=== PATIENT | female | born 1995 | race Caucasian/White ===

== ENCOUNTER 2017-02-24 14:57 | Outpatient (CLI) | payer MEDICAID ==
[~2017-02-24] VITALS: Ht 157.5 cm; Wt 80.5 kg
[~2017-02-24 14:57] MED LIST: DOCU-131 PO; IBUP-1222 PO; OXYC-302 PO; PREN1TAB27 PO
[2017-02-24 15:12] VITALS: BP 107/62
== END 2017-02-24 16:43 | disposition home or self-care (01) ==
LOC: LDOP 14:57
PROVIDERS: ATTEND Student in an Organized Health Care Education/Training Program
DX: O36.8130 Decreased fetal movements, third trimester, not applicable or unspecified (principal); Z3A.37 37 weeks gestation of pregnancy
CPT/HCPCS: 59025; 76815; 99201; G0463

== ENCOUNTER 2017-03-06 06:09 | Inpatient (IN) | payer MEDICAID ==
[~2017-03-06] VITALS: Ht 157.5 cm; Wt 80.9 kg
[2017-03-06] MEDS ORDERED: LACTATED RINGERS 1,000 ML IV SCH ×2 (06:16→06:30)
[2017-03-06] MEDS ORDERED: OXYTOCIN 30U/ 0.9% NaCL 500ML 500 ML IV SCH (06:16)
[2017-03-06 06:29] VITALS: BP 120/64
[2017-03-06] MEDS ORDERED: METOCLOPRAMIDE 5 MG/ML, 2ML IV ONE (06:30)
[2017-03-06] MEDS ORDERED: SODIUM CITRATE/CITRIC ACID 30 ML UDC PO ONE (06:30)
[2017-03-06] MEDS ORDERED: LACTATED RINGERS 1,000 ML IVBOLUS ONE (06:30)
[2017-03-06 06:44] LABS: HEMATOCRIT 36.6 % (34.6-47.8); WHITE BLOOD COUNT 8.8 x10^3/uL (3.4-10)
[2017-03-06] MEDS ORDERED: METOCLOPRAMIDE 5 MG/ML, 2ML ONE ×2 (06:53→10:21)
[2017-03-06] MEDS ORDERED: NEWBORN KIT ONE (06:53)
[2017-03-06] MEDS ORDERED: SODIUM CITRATE/CITRIC ACID 30 ML UDC ONE ×2 (06:53→10:21)
[2017-03-06] MEDS ORDERED: OXYTOCIN 30U/ 0.9% NaCL 500ML 500 ML ONE (06:53)
[2017-03-06] MEDS ORDERED: ONDANSETRON 2MG/ML, 2ML IVPush PRN (08:00)
[2017-03-06] MEDS ORDERED: MEPERIDINE/PF 25MG/0.5ML IVPush PRN (08:00)
[2017-03-06] MEDS ORDERED: EPHEDRINE 50 MG/ML, 1ML IVPush PRN (08:00)
[2017-03-06] MEDS ORDERED: OXYcodone 5 MG/5 ML ORAL.SOL UDC PO PRN (08:00)
[2017-03-06] MEDS ORDERED: morphine SULFATE 10 MG/ML, 1ML IV PRN (08:00)
[2017-03-06] MEDS ORDERED: CEFAZOLIN 1,000 MG ONE (10:21)
[2017-03-06] MEDS ORDERED: KETOROLAC 30 MG/1 ML ONE (10:21)
[2017-03-06] MEDS ORDERED: OXYTOCIN 10 UNITS/ML, 1ML ONE ×2 (10:21)
[2017-03-06] MEDS ORDERED: FENTANYL PF 100 MCG/2ML ONE ×3 (11:05→13:20)
[2017-03-06] MEDS: OXYTOCIN 30U/ 0.9% NaCL 500ML 500 ML IV SCH ×2 (11:46→21:46)
[2017-03-06] MEDS: LACTATED RINGERS 1,000 ML IV SCH ×4 (11:46→21:46)
[2017-03-06] MEDS ORDERED: OXYcodone 5 MG/5 ML ORAL.SOL UDC ONE (11:53)
[2017-03-06] MEDS ORDERED: HYDROcodone/APAP 5/325 TABLET PO PRN ×2 (12:00)
[2017-03-06] MEDS ORDERED: IBUPROFEN 600 MG TABLET PO PRN (12:00)
[2017-03-06] MEDS ORDERED: MISOPROSTOL 200 MCG TABLET PR PRN (12:00)
[2017-03-06] MEDS ORDERED: ONDANSETRON 2MG/ML, 2ML IV PRN (12:00)
[2017-03-06] MEDS ORDERED: METHYLERGONOVINE 0.2 MG/ML IM PRN (12:00)
[2017-03-06] MEDS ORDERED: CARBOPROST TROMETHAMINE 250 MCG/ML, 1ML IM PRN (12:00)
[2017-03-06] MEDS ORDERED: CALCIUM CARBONATE 500 MG TAB.CHEW PO PRN (12:00)
[2017-03-06] MEDS ORDERED: SIMETHICONE 80 MG CHEW TAB PO PRN (12:00)
[2017-03-06] MEDS: FENTANYL PF 100 MCG/2ML IV PRN ×4 (12:25→13:40)
[2017-03-06 14:32] VITALS: BP 106/56
[2017-03-06] MEDS: KETOROLAC 30 MG/1 ML IV SCH ×2 (17:23→23:29)
[2017-03-06] MEDS ORDERED: MORPHINE SULFATE 4 MG/ML, 1ML IVPush PRN (18:00)
[2017-03-06] MEDS ORDERED: OXYcodone IR 5MG TABLET PO PRN (18:05)
[2017-03-06 19:31] LABS: HEMATOCRIT 32.8 % (34.6-47.8); HEMOGLOBIN 10.8 g/dL (11.7-16.4); WHITE BLOOD COUNT 9.1 x10^3/uL (3.4-10)
[2017-03-06 20:16] VITALS: BP 119/81
[2017-03-06] MEDS: DOCUSATE 100 MG CAPSULE PO PRN (20:21)
[2017-03-06] MEDS: OXYcodone IR 5MG TABLET PO PRN ×2 (20:21→23:47)
[2017-03-07 00:30] VITALS: BP 113/70
[2017-03-07] MEDS: LACTATED RINGERS 1,000 ML IV SCH ×5 (03:46→19:46)
[2017-03-07] MEDS: OXYcodone IR 5MG TABLET PO PRN ×5 (04:07→20:44)
[2017-03-07 04:30] VITALS: BP 117/83
[2017-03-07] MEDS: KETOROLAC 30 MG/1 ML IV SCH ×4 (05:41→23:44)
[2017-03-07 06:45] VITALS: BP 96/65
[2017-03-07] MEDS: OXYTOCIN 30U/ 0.9% NaCL 500ML 500 ML IV SCH ×2 (07:46→17:46)
[2017-03-07] MEDS: PRENATAL VIT/IRON/FA 1 EACH TABLET PO SCH (08:15)
[2017-03-07] MEDS: DOCUSATE 100 MG CAPSULE PO PRN ×2 (08:15→20:44)
[2017-03-07] MEDS: GUAIFENESIN 100 MG/5 ML, 5ML UDC PO PRN ×2 (13:24→23:48)
[2017-03-07 20:45] VITALS: BP 113/77
[2017-03-08] MEDS: OXYcodone IR 5MG TABLET PO PRN ×4 (00:51→12:06)
[2017-03-08] MEDS: OXYTOCIN 30U/ 0.9% NaCL 500ML 500 ML IV SCH (03:46)
[2017-03-08] MEDS: LACTATED RINGERS 1,000 ML IV SCH ×3 (03:46→11:46)
[2017-03-08] MEDS: KETOROLAC 30 MG/1 ML IV SCH ×2 (05:26→11:30)
[2017-03-08 06:40] VITALS: BP 112/73
[2017-03-08] MEDS: GUAIFENESIN 100 MG/5 ML, 5ML UDC PO PRN (08:55)
[2017-03-08] MEDS: PRENATAL VIT/IRON/FA 1 EACH TABLET PO SCH (08:55)
[2017-03-08] MEDS: DOCUSATE 100 MG CAPSULE PO PRN (08:55)
[2017-03-08] MEDS ORDERED: OXYC-302 PO (11:02)
[2017-03-08] MEDS ORDERED: IBUP-1222 PO (11:03)
== END 2017-03-08 13:35 | disposition home or self-care (01) | DRG 766 ==
LOC: LDIP 06:09 → 2NW 13:50
PROVIDERS: ADMIT Student in an Organized Health Care Education/Training Program; ATTEND Student in an Organized Health Care Education/Training Program
PROC: 10D00Z1 Extraction of Products of Conception, Low, Open Approach (ICD-10-PCS; principal; 2017-03-06)
PROC: 0UB70ZZ Excision of Bilateral Fallopian Tubes, Open Approach (ICD-10-PCS; 2017-03-06)
DX: O34.211 Maternal care for low transverse scar from previous cesarean delivery (principal); E88.81 Metabolic syndrome and other insulin resistance; K59.00 Constipation, unspecified; Z37.0 Single live birth; Z83.3 Family history of diabetes mellitus; Z30.2 Encounter for sterilization; Z3A.39 39 weeks gestation of pregnancy; L91.0 Hypertrophic scar; Z91.012 Allergy to eggs; O99.284 Endocrine, nutritional and metabolic diseases complicating childbirth; O90.81 Anemia of the puerperium; D64.9 Anemia, unspecified
CPT/HCPCS: 36415; 85025; 86850; 86900; 88302; J0690; J1885; J2405; J3010; J2270; J2590; J2765; J7120